=== PATIENT | female | born 1980 | race Caucasian/White ===

== ENCOUNTER → 2016-09-18 | Outpatient (REF) | payer OTHER ==
[~2016-09-18] MED LIST: SERT-138 PO; TRINTAB PO
[2016-09-18 14:20] LABS: PERCENT SATURATION 22.8 % (13.2-37.4)
[2016-09-18 14:22] LABS: RETIC HEMOGLOBIN CONTENT CHr 31.4 PG (24-36); RETICULOCYTE ABSOLUTE ADVIA212 82 x10(9)/L (17-77)
[2016-09-18 14:33] LABS: REASON FOR REVIEW COMPREHENSIVE REVIEW
== END | disposition home or self-care (01) ==
LOC: M LAB REF 13:00
PROVIDERS: ATTEND Internal Medicine Medical Oncology
DX: D64.9 Anemia, unspecified (principal)

== ENCOUNTER 2017-04-21 18:53 | Emergency (ER) | payer OTHER ==
[~2017-04-21 18:53] MED LIST changes: -KETO10TAB PO
[2017-04-21] MEDS ORDERED: KETOROLAC 30 MG/ML VIAL (J1885) IV ONE (19:45)
[2017-04-21 20:13] LABS: BASO % 0.3 % (0.0-1.0); EOS # 0.2 K/mm3 (0.0-0.50); EOS % 2.6 % (0.0-3.0); LARGE UNSTAINED CELL # 0.1 K/mm3 (0.0-0.4); LARGE UNSTAINED CELL % 2.1 % (0.0-4.0); LYMPH # 1.8 K/mm3 (1.5-4.5); LYMPH % 26.3 % (24.0-44.0); MEAN CORPUSCULAR HEMOGLOBIN 29.1 pg (27.0-33.0); MEAN CORPUSCULAR VOLUME 85.7 fl (80.0-96.0); MONO # 0.4 K/mm3 (0.0-0.8); MONO % 5.4 % (0.0-5.0); NEUTROPHILS # 4.2 K/mm3 (1.8-7.7); NEUTROPHILS % 63.4 % (36.0-66.0); PLATELET COUNT, AUTOMATED 252 k/mm3 (150-450); WHITE BLOOD COUNT 6.7 K/mm3 (4.0-10.0)
[2017-04-21 20:14] LABS: INR 1.08
[2017-04-21 20:36] LABS: ALBUMIN 3.3 GM/DL (3.2-5.2); ALBUMIN/GLOBULIN RATIO 0.75 (1.00-1.93); ALKALINE PHOSPHATASE 85 U/L (45-117); ALT/SGPT 26 U/L (12-78); ANION GAP 5 MEQ/L (8-16); AST/SGOT 15 U/L (15-37); BILIRUBIN,DIRECT < 0.1 MG/DL (0.0-0.2); BILIRUBIN,TOTAL 0.2 MG/DL (0.2-1.0); BLOOD UREA NITROGEN 13 MG/DL (7-18); CALCIUM LEVEL 8.3 MG/DL (8.5-10.1); CARBON DIOXIDE LEVEL 29 MEQ/L (21-32); CHLORIDE LEVEL 104 MEQ/L (98-107); CREATININE FOR GFR 0.82 MG/DL (0.55-1.02); FREE T4 0.94 NG/DL (0.76-1.46); GLOMERULAR FILTRATION RATE > 60.0 (>60); GLUCOSE, FASTING 81 MG/DL (70-105); POTASSIUM SERUM 3.7 MEQ/L (3.5-5.1); SODIUM LEVEL 138 MEQ/L (136-145); TOTAL PROTEIN 7.7 GM/DL (6.4-8.2)
[2017-04-21 20:42] LABS: ABG BASE EXCESS -1.9 (-2.0-2.0); ABG HCO3 22.1 MEQ/L (22.0-26.0); ABG PARTIAL PRESSURE CO2 35.4 mmHg (35.0-45.0); ABG PARTIAL PRESSURE O2 93.4 mmHg (75.0-100.0); ABG STANDARD HCO3 22.9 MEQ/L (22.0-26.0); ABG TOTAL CO2 23.2 MEQ/L (22.0-29.0); ABG pH (ARTERIAL) 7.414 UNITS (7.350-7.450)
[2017-04-21 21:18] LABS: CONTROL LINE HCG INT CTR LINE PRESENT
[2017-04-21] MEDS ORDERED: PERCOCET 5MG/325MG TAB PO ONE (21:45)
[2017-04-21] MEDS ORDERED: ISOVUE-370 76% 100ML VIAL (Q9967) As Ordered ONE (22:39)
--- NOTE | 2017-04-21 23:20 | REPUSA ---
CT angiogram of the chest Clinical statement: Chest pain and shortness of breath. Technique: Multiple axial CT images were obtained from the thoracic inlet through the upper abdomen a fter a bolus administration of nonionic intravenous contrast. Coronal and sagittal reconstructions we re also obtained. Comparison: None. Findings: The pulmonary arteries are well-opacified with contrast, with no intraluminal filling defec ts to suggest embolism. The thoracic aorta is unremarkable. Thyroid gland is within normal limits. Th ere is no thoracic lymphadenopathy. There are no pericardial or pleural effusions. The lungs are christine r. Limited imaging of the upper abdomen is unremarkable. There are no suspicious osseous lesions. Impression: Unremarkable CT examination of the chest. No evidence of pulmonary embolism.
[2017-04-21 23:48] VITALS: BP 132/78
[2017-04-21] MEDS ORDERED: KETO10TAB PO (23:48)
--- NOTE | 2017-04-22 05:51 | REP ---
AP PORTABLE CHEST: 04/21/2017 AT 07:30 PM. Clinical history: PA lateral chest at the [facility] and 06:06 PM tonight. A wet reading was given for that study. Findings: There is no change in the chest other than the differences in technique from the portable technique currently to the PA and lateral done 1-1/2 hours ago. Nothing acute. Signed by Tim Wong MD 04/22/2017 11:15 A
--- NOTE | 2017-04-22 07:32 | ECGEPIP ---
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
== END 2017-04-22 00:23 | disposition home or self-care (01) ==
LOC: M ED 18:53
DX: R07.89 Other chest pain (principal); F17.210 Nicotine dependence, cigarettes, uncomplicated; F33.9 Major depressive disorder, recurrent, unspecified; Z79.3 Long term (current) use of hormonal contraceptives; Z79.899 Other long term (current) drug therapy
CPT/HCPCS: 36600; 71010; 71020; 71275; 80048; 80076; 82550; 82553; 82803; 83690; 84439; 84443; 84703; 85025; 85610; 85730; 93005; 93041; 96374; 99284; J1885; Q9967

== ENCOUNTER → 2017-04-21 | Outpatient (CLI) | payer OTHER ==
[~2017-04-21] MED LIST changes: +KETO10TAB PO; -TRINTAB PO; +TRINTAB3 PO
--- NOTE | 2017-04-21 21:38 | REP ---
CHEST PA AND LATERAL: 04/21/2017. Comparison: 06/24/2006. Clinical history: Chest pain, dyspnea. Findings: Two-view show the lungs well inflated. The CP angles are sharply defined. There is no pleural effusion, lateral pleural thickening apical scarring or pneumothorax. No infiltrate, atelectasis or mass. There is no vascular redistribution or edema. Heart is not enlarged. The aorta is mildly tortuous but it follows the dextroconvex curve of the mid thoracic spine. Scoliosis of the mid-thoracic spine has increased since the study of almost 11 years ago. There is no compression deformity of the spine and no free air Impression: 1. There is no acute cardiopulmonary change. 2. 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 Signed by Tim Wong MD 04/22/2017 11:10 A
== END ==
LOC: M LRY 17:57
PROVIDERS: ATTEND Nurse Practitioner Family
DX: R07.9 Chest pain, unspecified (principal)

== ENCOUNTER → 2017-05-09 | Outpatient (REF) | payer OTHER ==
[~2017-05-09] MED LIST changes: +KETO10TAB PO
[2017-05-09 13:59] LABS: PERCENT SATURATION 11.4 % (13.2-45.0)
== END ==
LOC: M LAB REF 12:20
PROVIDERS: ATTEND Internal Medicine Medical Oncology
DX: D50.9 Iron deficiency anemia, unspecified (principal)

== ENCOUNTER → 2017-08-11 | Outpatient (REF) | payer OTHER | LOC: M LAB REF 18:35 | PROVIDERS: ATTEND Internal Medicine Medical Oncology | DX: D50.9 Iron deficiency anemia, unspecified (principal) ==

== ENCOUNTER → 2017-11-19 | Outpatient (REF) | payer OTHER ==
[2017-11-19 13:41] LABS: FERRITIN 50 NG/ML (8-252); IRON (FE) 90 UG/DL (50-170); PERCENT SATURATION 23.3 % (13.2-45.0); TOTAL IRON BINDING CAPACITY 387 UG/DL (250-450)
== END ==
LOC: M LAB REF 13:02
DX: D64.9 Anemia, unspecified (principal)